=== PATIENT | male | born 1960 | race Caucasian/White ===

== ENCOUNTER 2016-09-01 11:41 | Outpatient (CLI) | payer BC ==
[2016-09-01] MEDS ORDERED: BARIUM SULFATE 135 ML SUSP.RECON (E-Z-HD) PO ONE (12:04)
== END 2016-09-01 20:40 | disposition home or self-care (01) ==
LOC: EDBD 11:41 → SRD 11:41
PROVIDERS: ATTEND Otolaryngology
DX: M47.892 Other spondylosis, cervical region (principal); R47.02 Dysphasia
CPT/HCPCS: 74220-TC